=== PATIENT | male | born 1950 | race African-American/Black ===

== ENCOUNTER 2019-06-29 08:30 | Inpatient (IN) ==
[2019-06-29] MEDS ORDERED: NS 1,000 ML IV ONE (10:25)
[2019-06-29] MEDS ORDERED: ASPIRIN PO ONE (10:25)
[2019-06-29 11:19] LABS: HEMATOCRIT 41.6 % (42.0-52.0); HEMOGLOBIN 13.7 g/dL (14.0-18.0); MCV 86.7 FL (81-99); WBC 6.51 X1000 (4.8-10.8)
[2019-06-29 11:20] LABS: BASO# 0.03 X1000 (0.0-0.2); BASO% 0.5 % (0.0-0.8); EOS# 0.16 X1000 (0.0-0.7); EOS% 2.5 % (0.0-10.0); IMM GRAN# 0.01 X1000 (0.0-0.04); IMM GRAN% 0.2 % (0.0-0.5); LYMPH# 1.67 X1000 (1.2-3.4); LYMPH% 25.7 % (20.5-51.1); MCH 28.5 PG (27-31); MCHC 32.9 g/dL (33-37); MONO# 0.57 X1000 (0.11-0.59); MONO% 8.8 % (1.7-9.3); MPV 9.2 FL (7.4-10.4); NEUT# 4.07 X1000 (1.4-6.5); NEUT% 62.3 % (42.2-75.2); PLT 344 X1000 (130-400); RDW 14.2 % (11.5-14.5)
--- NOTE | 2019-06-29 11:27 | EKG Report ---
Test Performed on : 06/29/2019 10:59:14 AM Test Reason : stroke symptoms Blood Pressure : / mmHG Vent. Rate : 061 BPM Atrial Rate : 061 BPM P-R Int : 172 ms QRS Dur : 082 ms QT Int : 424 ms P-R-T Axes : 059 031 028 degrees QTc Int : 426 ms Normal sinus rhythm. Normal ECG When compared with ECG of 24-JAN-2017 16:25, No significant change was found Unconfirmed Result
[2019-06-29 11:37] LABS: BILIRUBIN URINE NEGATIVE (NEGATIVE); BLOOD URINE NEGATIVE (NEGATIVE); GLUCOSE URINE NEGATIVE (NEGATIVE); KETONE URINE NEGATIVE (NEGATIVE); LEUKOCYTES URINE TRACE (NEGATIVE); NITRITE URINE NEGATIVE (NEGATIVE); PROTEIN URINE TRACE mg/dL (NEGATIVE); SP GRAVITY URINE 1.015; UROBILINOGEN URINE NORMAL
[2019-06-29 11:38] LABS: CLARITY CLEAR (CLEAR); COLOR YELLOW; URINE BACTERIA 1+ /HFP; URINE CAST NONE SEEN /LPF; URINE CRYSTAL NONE SEEN /HPF; URINE EPITHELIAL CELLS <10 /HPF (<10); URINE RBC <10 /HPF (<10); URINE SOURCE CLEAN CATCH; URINE WBC <10 /HPF (<10); URINE YEAST PRESENT /HPF
[2019-06-29 11:43] LABS: UR AMPHETAMINES QUAL NONE DETECTED (NONE DETECT); UR BARBITUATES QUAL NONE DETECTED (NONE DETECT); UR BENZODIAZEPIN QUAL NONE DETECTED (NONE DETECT); UR COCAINE QUAL NONE DETECTED (NONE DETECT); UR METHADONE QUAL NONE DETECTED (NONE DETECT); UR METHAMPHETAMINE QUAL NONE DETECTED (NONE DETECT)
[2019-06-29 11:44] LABS: UR CANNABINOIDS QUAL PRESUMPTIVE POSITIVE (NONE DETECT); UR OPIATES QUAL PRESUMPTIVE POSITIVE (NONE DETECT); UR OXYCODONE QUAL NONE DETECTED (NONE DETECT); UR PCP QUAL NONE DETECTED (NONE DETECT); UR PROPOXYPHENE QUAL NONE DETECTED (NONE DETECT); UR TCA QUAL NONE DETECTED (NONE DETECT)
[2019-06-29 12:09] LABS: INR 0.98; PROTIME 13.5 Seconds (11.0-16.0)
[2019-06-29 12:10] LABS: PTT 21.9 Seconds (22.3-41.8)
--- NOTE | 2019-06-29 12:21 | Diag Imaging Result Doc PS360 ---
CT HEAD W/O CONTRAST - 06/29/2019 INDICATION: right sided weakness COMPARISON: None FINDINGS: There is moderately extensive, chronic periventricular white matter hypodensity mainly in the right frontal lobe. There is some faint cerebral white matter hypodensity compatible with chronic ischemia bilaterally, superiorly. No intracranial mass or hemorrhage. The skull is intact. The sinuses are clear. IMPRESSION: Chronic ischemic changes of the brain. No acute process. This exam was performed using automated exposure control, adjustment of mA or kV according to patient size, and/or use of iterative reconstruction technique Electronically signed by Bal Contreras 06/29/2019 12:19 PM
[2019-06-29 12:24] LABS: CALCIUM 8.3 mg/dL (8.8-10.2); CREATININE 1.3 mg/dL (0.7-1.2); TOTAL BILIRUBIN 0.3 mg/dL (0.20-1.00); TOTAL PROTEIN 6.8 g/dL (6.3-8.3)
--- NOTE | 2019-06-29 12:33 | Diag Imaging Result Doc PS360 ---
CHEST-PORTABLE - 06/29/2019 INDICATION: right sided weakness COMPARISON: 01/24/2017 FINDINGS: The lungs are normally expanded and clear. Heart size and mediastinal contours are normal. No pneumothorax or pleural effusion. IMPRESSION: Negative exam. Electronically signed by Bal Contreras 06/29/2019 12:31 PM
[2019-06-29 12:39] LABS: POTASSIUM 4.2 mmol/L (3.5-5.1)
[2019-06-29 12:40] LABS: ALBUMIN 3.5 g/dL (3.5-5.0)
[2019-06-29] MEDS ORDERED: ROCEPHIN 1 GM in NS 50 ML IV ONE (12:43)
[2019-06-29] MEDS ORDERED: DIFLUCAN PO ONE (12:43)
--- NOTE | 2019-06-29 12:48 | PROVIDER DOCUMENTATION ---
This chart was entered by Shell Perry Scribe, acting as scribe for Freddie Renae MD. HPI-Neurological Disorder - General Chief Complaint: Numbness Stated Complaint: NUMBNESS RT SIDE Time Seen by Provider: 06/29/19 08:50 Source: patient Allergies/Adverse Reactions: Patient Allergies Allergy/AdvReac Type Severity Reaction Status Date / Time No Known Allergies Allergy Verified 01/24/17 15:36 Home Medications: Home Medication List Medication Instructions Recorded Confirmed Last Taken Type Aspirin [Haakon Aspirin EC] 81 mg PO DAILY 05/07/15 05/16/18 05/06/15 History Atorvastatin Calcium 80 mg PO DAILY 05/07/15 05/16/18 05/06/15 History Calcium Carbonate/Vitamin D3 1 each PO DAILY 05/07/15 05/16/18 05/06/15 History [Calcium 500 + D Tablet] Magnesium Carbonate 1 cap PO DAILY 05/07/15 05/16/18 05/03/15 History Metoprolol Tartrate 50 mg PO BID 05/07/15 05/16/18 05/06/15 History Pantoprazole [Protonix] 40 mg PO DAILY@0700 05/07/15 05/16/18 05/06/15 History Acetaminophen with Codeine 1 ea PO Q6H PRN PRN #14 tab 05/16/18 Unknown Rx [Tylenol with Codeine #3 Tablet] Hydrocodone/APAP 5 mg/325 mg 1 tab PO Q6H PRN PRN #18 tab 05/16/18 Unknown Rx [Edward-5] Hydrocodone/Acetaminophen [Edward 1 tab PO BID PRN PRN 05/16/18 05/16/18 Unknown History 10-325 Tablet] Hydroxyzine [Atarax] 25 mg PO DAILY 05/16/18 05/16/18 Unknown History Naloxegol Oxalate [Movantik] 25 mg PO PRN PRN 05/16/18 05/16/18 Unknown History Sucralfate [Carafate] 1 gm PO 4XDAY 05/16/18 05/16/18 Unknown History Terazosin [Hytrin] 5 mg PO DAILY 05/16/18 05/16/18 Unknown History Meloxicam [Mobic] 15 mg PO DAILY #20 tab 09/15/18 Unknown Rx - History of Present Illness-Neuro Nature of Presenting Problem: Patient is a 68 year old male who presents to the ED with numbness and tingling to right side face, right arm and right leg. States symptoms started 2 days ago. Denies headache, vision changes, and trouble walking. Severity: reports: mild Onset/Duration: reports: 2 days ago Timing: reports: improving Context: reports: paresthesia, other (numbness) Character of Deficits: reports: altered sensation New weakness or altered sensation location:: reports: RUE, RLE, right facial Associated Symptoms: reports: denies symptoms Similar Symptoms Previously?: Yes Recently seen or treated by another doctor?: No Review of Systems - Adult - REVIEW OF SYSTEMS - ADULT Constitutional: reports: no symptoms reported. denies: chills, fever, fatique Eyes: reports: no symptoms reported. denies: decreased vision, blurred vision, double vision Ears, Nose, Mouth & Throat: reports: no symptoms reported Cardiovascular: reports: no symptoms reported Respiratory: reports: no symptoms reported Gastrointestinal: reports: no symptoms reported Genitourinary: reports: no symptoms reported Musculoskeletal: reports: no symptoms reported Integumentary: reports: no symptoms reported Neurological: reports: see HPI, numbness (RUE, RLE and right side face), paresthesia (RUE, RLE and right side face). denies: dizziness/vertigo, headache/migraines Psychiatric: reports: no symptoms reported Endocrine: reports: no symptoms reported Hematologic/Lymphatic: reports: no symptoms reported Allergic/Immunologic: reports: no symptoms reported All Other Systems: Reviewed and Negative Past History - Adult - PAST MEDICAL HISTORY-ADULT Review of Records: reports: Old Records Reviewed, Social history reviewed & non- contributory. Major Childhood Illnesses: reports: denies history Cardiovascular: reports: CAD, HTN, hyperlipidemia, [place] Respiratory: reports: denies history Gastrointestinal: reports: denies history Obstetrical/Gynecological: reports: denies history Genitourinary: reports: other (bph) Musculoskeletal: reports: chronic pain Neurological: reports: denies history Psychiatric: reports: denies history Endocrine/Immune: reports: denies history Other Conditions: reports: denies history - PRIOR SURGERIES/PROCEDURES Surgical/Procedure History: reports: appendectomy, hernia repair - IMMUNIZATION STATUS Childhood Immunizations: See Nurse Assessment Flu Vaccine: See Nurse Assessment - FAMILY HISTORY Family History: reviewed, not pertinent - SOCIAL HISTORY Smoking: cigarettes, less than 1 pack/day Provider spent 3-5 mins advising pt. on dangers of tobacco.: Discussed manners to quit use, and f/u contacts for add'l counseling. Substance Use: denies Living Situation: alone Physical Exam- Neurological - Physical Exam-Neuro Initial Vital Signs Reviewed: Yes General Appearance: alert, no apparent distress. negative: lethargic Eye Exam: bilateral eye: normal inspection, PERRL, EOMI HENMT: normocephalic/atraumatic, moist mucous membranes. negative: angioedema Head Injury: no evidence of injury. negative: active bleeding, ecchymosis, lacerations Respiratory: chest non-tender, lungs clear, normal breath sounds. negative: tire changer aircraft ckles, rales, rhonchi Cardiovascular: normal peripheral pulses, regular rate, rhythm. negative: tachycardia Abdominal Exam: normal bowel sounds, non tender, soft. negative: guarding, rebound Extremity: non-tender, pedal edema (bilateral). 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 negative: abnormal speech Motor/Sensory: no motor deficit, sensory deficit (right side face, RUE, and RLE) . negative: pronator drift (R), pronator drift (L) Neurologic: facial droop (right), sensory deficit (right side face, RUE and RLE) . negative: aphasia, motor weakness Integumentary: normal color, normal turgor, warm/dry. negative: diaphoresis, ecchymosis, rash Psych/Mental Status: normal mood/affect, oriented x 3. negative: anxious Progress - PLAN OF CARE/RESULTS Progress/Plan/Lab Results: Vital Signs - 8 hr 06/29/19 08:38 Temperature 98 F Pulse Rate 80 Respiratory Rate 18 Blood Pressure 132/65 O2 Sat by Pulse Oximetry 97 Laboratory Results - last 24 hr 06/29/19 06/29/19 06/29/19 10:24 11:00 11:00 WBC 6.51 RBC 4.80 Hgb 13.7 L Hct 41.6 L MCV 86.7 MCH 28.5 MCHC 32.9 L RDW Std Deviation 14.2 Plt Count 344 MPV 9.2 Immature Gran % (Auto) 0.2 Neut % (Auto) 62.3 Lymph % (Auto) 25.7 [place] % (Auto) 8.8 Eos % (Auto) 2.5 Baso % (Auto) 0.5 Immature Gran # (Auto) 0.01 Neut # (Auto) 4.07 Lymph # (Auto) 1.67 [place] # (Auto) 0.57 Eos # (Auto) 0.16 Baso # (Auto) 0.03 PT INR PTT (Actin FS) Sodium Potassium Chloride Carbon Dioxide Anion Gap BUN Creatinine Estimated GFR/1.73 m2 BUN/Creatinine Ratio Glucose Calculated Osmolality Calcium Total Bilirubin AST ALT Alkaline Phosphatase Total Protein Albumin Globulin Albumin/Globulin Ratio Urine Source CLEAN CATCH Urine Color YELLOW Urine Clarity CLEAR Urine pH 5.0 Ur Specific [place] 1.015 Urine Protein TRACE A Urine Ketones NEGATIVE Urine Blood NEGATIVE Urine Nitrite NEGATIVE Urine Bilirubin NEGATIVE Urine Urobilinogen NORMAL Urine Microscopic RBC <10 Urine WBC TRACE A Urine Microscopic WBC <10 Ur Epithelial Cells <10 Urine Crystals NONE SEEN Urine Bacteria 1+ Urine Casts NONE SEEN Urine Yeast PRESENT Urine Glucose NEGATIVE Urine Opiates Screen PRESUMPTIVE POSITIVE A Ur Oxycodone Screen NONE DETECTED Urine Methadone Screen NONE DETECTED U Propoxyphene Qual NONE DETECTED Ur Barbituates Screen NONE DETECTED Ur Tricyclics Screen NONE DETECTED Ur Phencyclidine Scrn NONE DETECTED Ur Amphetamines Screen NONE DETECTED U Methamphetamines Scrn NONE DETECTED U Benzodiazepines Scrn NONE DETECTED Urine Cocaine Screen NONE DETECTED U Cannabinoids Screen PRESUMPTIVE POSITIVE A 06/29/19 06/29/19 11:22 11:55 WBC RBC Hgb Hct MCV MCH MCHC RDW Std Deviation Plt Count MPV Immature Gran % (Auto) Neut % (Auto) Lymph % (Auto) [place] % (Auto) Eos % (Auto) Baso % (Auto) Immature Gran # (Auto) Neut # (Auto) Lymph # (Auto) [place] # (Auto) Eos # (Auto) Baso # (Auto) PT 13.5 INR 0.98 PTT (Actin FS) 21.9 L Sodium 138 Potassium 4.2 Chloride 103 Carbon Dioxide 27 Anion Gap 8 BUN 15 Creatinine 1.3 H Estimated GFR/1.73 m2 55 BUN/Creatinine Ratio 12 Glucose 80 Calculated Osmolality 275 Calcium 8.3 L Total Bilirubin 0.30 AST 15 ALT 27 Alkaline Phosphatase 77 Total Protein 6.8 Albumin 3.5 Globulin 3.0 Albumin/Globulin Ratio 1.0 Urine Source Urine Color Urine Clarity Urine pH Ur Specific [place] Urine Protein Urine Ketones Urine Blood Urine Nitrite Urine Bilirubin Urine Urobilinogen Urine Microscopic RBC Urine WBC Urine Microscopic WBC Ur Epithelial Cells Urine Crystals Urine Bacteria Urine Casts Urine Yeast Urine Glucose Urine Opiates Screen Ur Oxycodone Screen Urine Methadone Screen U Propoxyphene Qual Ur Barbituates Screen Ur Tricyclics Screen Ur Phencyclidine Scrn Ur Amphetamines Screen U Methamphetamines Scrn U Benzodiazepines Scrn Urine Cocaine Screen U Cannabinoids Screen Orders Category Date Time Status Cardiac Monitoring DIRECTED Care 06/29/19 10:24 Active Finger Stick Blood Sugar (ED) DIRECTED Care 06/29/19 10:24 Active Saline Loc NOW Care 06/29/19 10:24 Active CHEST-PORTABLE [RAD] Stat Exams 06/29/19 10:[address] HEAD W/O CONTRAST [CT] Stat Exams 06/29/19 12:04 Completed CBC WITH ELECTRONIC DIFF [HEME] Stat Lab 06/29/19 10:24 Completed COMPREHENSIVE METABOLIC PANEL [CHEM] Stat Lab 06/29/19 11:55 Completed PROTIME WITH INR [COAG] Stat Lab 06/29/19 11:22 Completed PTT [COAG] Stat Lab 06/29/19 11:22 Completed TROPONIN T Stat Lab 06/29/19 11:[address] W/POSS RFLX CULT [URINALYSIS] Stat Lab 06/29/19 11:00 Completed URINE CULTURE [RM] Routine Lab 06/29/19 11:38 [address] DRUG SCREEN [address] Stat Lab 06/29/19 11:00 Completed 0.9% Sodium Chloride Inj [Ns] 1,000 ml Med 06/29/19 10:25 Discontinued IV 999 mls/hr Aspirin Med 06/29/19 10:25 Discontinued 325 mg PO NOW ONE EKG [EKG] Stat Ther 06/29/19 10:24 Draft Result Diagrams: 06/29/19 10:24 06/29/19 11:55 - EKG 1 Time of EKG reading by physician:: 10:59 EKG Read and Signed by:: Freddie Renae EKG Interpretation (*Must complete 3 of following elements*): Normal Rate: 61 Rhythm: normal sinus rhythm [place]: normal QRS: normal [place] Interval: normal ST Wave: normal Comments: normal ECG - CONSULTS/PCP/HOSPITALIST Notification #1 *Consult/PCP/Hospitalist*: Oswaldo paged at [phone] Time Discussed: 12:48 Consult Disposition: Admit Departure - Departure Date of Disposition Decision: 06/29/19 Time of Disposition Decision: 12:44 DIAGNOSIS: Genital candidiasis in male CVA (cerebral vascular accident) Qualifiers: CVA mechanism: thrombosis Precerebral and cerebral artery: anterior cerebral artery Laterality of affected vessel: left Qualified Code(s): 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 UTI (urinary tract infection) Qualifiers: Urinary tract infection type: acute cystitis Hematuria presence: without hematuria Qualified Code(s): N30.00 - Acute cystitis without hematuria Disposition: ADMITTED INPATIENT Certified Medical Emergency: Emergent Condition: Stable Referrals and Follow-Ups: Ryan Quiroz [Primary Care Provider] - - Critical Care Note This patient required my direct & personal management of CC.: No Attestation - Physician/ NORMA Attestation Patient care was provided by Advanced Practice Provider:: No The physician spent face to face time with patient:: Yes Advanced Practice Provider documentation review:: Supervising physician onsite and consulted in the evaluation and care of this patient. The physician did have a face to face encounter with the patient. - NIH Stroke Scale Level of Consciousness: 0-Alert LOC Questions (ask month and age): 0-Answers Both Correctly LOC Commands (ask to open & close eyes;make a fist, let go): 0-Obeys Both Correctly Best Gaze (horizontal eye movement): 0-Normal Visual (use finger movement, counting or visual threat): 0-No Visual Loss Facial Palsy (show teeth or raise eyebrows & close eyes tght: 1-Minor Paralysis Motor Function-left arm: 0-Normal Motor Function-right arm: 0-Normal Motor Function-left le-Normal Motor Function-right le-Normal Limb Ataxia([id number], or heel to dee): 0-No Ataxia Sensory(pin prick to face,arms,trunk,legs-compare side/side): 1-Mild to Moderate Decrease in Sensation Best Language(name item/read sentence.Ex-Down to Earth): 0-No Aphasia Dysarthria(Pt read words or say words Ex.Mama,Tip-Top,Thanks: 0-Normal Articulation Extinction and Inattention: 0-Normal NIH Total Score: 2 Modified [place] Score Criteria: 1-no significant disability despite symptoms Stroke tPA Guidelines - Inclusion Criteria for IV tPA 18 years old or older: Yes Ischemic stroke with measurable deficit: Yes Onset <3 hours ago *OR* 3-4.5 hours ago: No - Exclusion Criteria for IV tPA Evidence of intracranial hemorrhage on CT: No Presentation suggest SAH: No CT reveals defined area of hypodensity: No Evidence of AVM, neoplasm, aneurysm: No Seizure at stroke onset: No Active internal bleeding or acute trauma: No Platelet Count Less Than 100,000: No Heparin Within Last 48 HRS (PTT >Lab normal limits): No INR > 1.7 (warfarin use): No Use IIB/IIIA inhibitors within 24 hours: No Serious Head Trauma Within Last 3 Months: No Arterial Puncture Within Last 7 Days: No Lumbar Puncture Within Last 7 Days: No Repeated systolic Blood Pressure >185 or Diastolic >110: No - Additional Exclusion Criteria for IV tPA Currently on Coumadin: No Patient older than 80: No Prior stroke and diabetes: Yes Baseline NIHSS score > 25: No - Relative Contraindications to IV tPA CT reveals extensive area of infarct (>1/3 MCA territory): No Minor or rapidly improving stroke symptoms: No Major Surgery or Serious Trauma In Previous 14 Days: No AMI within 3 months: No Gastrointestinal or Urinary Tract hemorrhage in Past 21 Days: No Post - AMI pericarditis: No Blood Glucose Less Than 50 mg/dl or Greater Than 400 mg/dl: No - Consultation tPA risks/benefits explained to:: patient Candidate for:: NOT A CANDIDATE (event started several days ago.) This chart was documented by the indicated scribe, (Shell Perry Scribe) and accurately reflects the services I performed and decisions made by Oc phillips Kent A., MD, as attested by the provider's signature.
[2019-06-29] MEDS ORDERED: ZOFRAN PO PRN (12:49)
[2019-06-29] MEDS ORDERED: TYLENOL PO PRN (12:49)
[2019-06-29] MEDS ORDERED: ASPIRIN ONE (13:09)
[2019-06-29] MEDS ORDERED: PNEUMOVAX 23 IM ONE (16:31)
[2019-06-29] MEDS: NS 1,000 ML IV SCH (16:41)
--- NOTE | 2019-06-29 16:52 | Extremity Venous Study ---
Carotid Ultrasound - 06/29/2019 INDICATION: TIA vs CVA TECHNIQUE: COMPARISON: None FINDINGS: The carotid artery systems are normal bilaterally. No significant plaque buildup. No elevated velocity to suggest significant stenosis. Maximum velocity on the right side is 62 cm/s. Maximum on the left side is 72 cm/s. The vertebral arteries are patent bilaterally. IMPRESSION: No significant carotid arterial stenosis. Estimated stenosis is 0%. Electronically signed by Bal Contreras 06/29/2019 4:49 PM
--- NOTE | 2019-06-29 17:08 | HISTORY AND PHYSICAL ---
PRIMARY CARE PHYSICIAN: Dr. Ryan Quiroz. CHIEF COMPLAINT: Numbness and tingling to the right side of his face, arm and leg that began on Saturday and progressively worsened. HISTORY OF PRESENTING ILLNESS: This is a 68-year-old male who presents to [facility] ER with complaints of numbness and tingling on the right side of his face, arm and leg states the symptoms began on Saturday and progressively worsened. He denied any headache, vision changes, dizziness, difficulty walking, denied any difficulty swallowing. His workup in the emergency room showed a head CT with chronic ischemic changes of the brain but no acute process. Laboratory data did show a little bump in his creatinine at 1.3. Urinalysis was negative except for 1+ bacteria and he did have some yeast present. His urine drug screen was presumptive positive for opiates and cannabinoids so he is being admitted for further evaluation and treatment. PAST MEDICAL HISTORY: Coronary artery disease status post PA, hypertension, hyperlipidemia, BPH and chronic pain. PAST SURGICAL HISTORY: Of an appendectomy and a hernia repair. FAMILY HISTORY: Reviewed and noncontributory. SOCIAL HISTORY: Currently lives alone. Smokes 1 to 2 cigarettes a day and has done so for approximately 5 years, denies any alcohol. Uses marijuana about every other day. ALLERGIES: He has no known drug allergies. HOME MEDICATIONS: A current list will need to be obtained, reconciled, reviewed and restarted as appropriate. Will place an order for nursing to update and confirm home medications. LABORATORY DATA: Showed a white blood cell count of 6.51, hemoglobin 13.7, hematocrit 41.6, platelets 344,000. PT and INR of 13.5 and 0.98. Sodium 138, potassium 4.2, chloride 103, CO2 27, BUN of 15, creatinine 1.3, glucose of 80, troponin less than 0.010. Urinalysis was negative except for 1+ bacteria and there was yeast present. Urine drug screen was presumptive positive for opiates and cannabinoids. CT of the head showed chronic ischemic changes of the brain but no acute process. Chest x-ray showed a negative exam. EKG showed normal sinus rhythm at 61. REVIEW OF SYSTEMS: He denied any fever, chills, blurred vision, dizziness, chest pain, coughing, shortness of breath, denies any abdominal pain, constipation, diarrhea, burning or hurting with urination. Did complain of some numbness to his right side of his face, arms and legs. PHYSICAL EXAMINATION: On arrival he had a temperature of 98 degrees, pulse 80, respirations 18, blood pressure 132/65, saturating 97% on room air. GENERAL: This is a 68-year-old male who is standing by the side of the bed answers questions appropriately. HEENT: Normocephalic, atraumatic. Normal ENT inspection. Oropharynx and nares are clear. Pupils are equal, round, reactive to light and accommodation. Extraocular movements are intact. NECK: Normal inspection, normal range of motion. LUNGS: Clear to auscultation bilaterally with equal lung expansion and chest wall movement. HEART: With regular rate and rhythm. No murmurs, rubs, or gallops. ABDOMEN: Soft, nontender, nondistended. Bowel sounds are present x4 quadrants. MUSCULOSKELETAL: He had 5/5 strength x4 extremities. NEUROLOGICAL: The cranial nerves 2-12 appear grossly intact. ASSESSMENT: 1. Transient ischemic attack versus cerebrovascular accident. 2. A mild acute kidney injury. 3. Candidiasis in urinalysis. 4. Tobacco abuse. 5. Marijuana abuse. 6. Coronary artery disease history of aware . PLAN: He will be admitted to the medical unit, placed on telemetry, healthy heart diet. Will check an MRI of the brain today with and without contrast. We will do an echocardiogram, carotid Dopplers, we will check a lipid panel. Place him on normal saline at 75 mL an hour, recheck CBC, BMP in the a.m. Place him on fluconazole 100 mg p.o. daily for 3 days, he did receive a 1st dose in the emergency room, along with an aspirin 325 mg daily. We need to verify his home medications and restart as appropriate and further orders after being seen by attending. Dictated by MARGARET Briscoe for Magdiel Chacon MD cc: MD Magdiel Lucas MD
[2019-06-29] MEDS: LIPITOR PO SCH (21:14)
[2019-06-29] MEDS: ATARAX PO SCH (21:14)
[2019-06-29] MEDS: BENADRYL PO SCH (21:14)
[2019-06-29] MEDS: NORCO-10 PO PRN (21:15)
[2019-06-30] MEDS: NS 1,000 ML IV SCH (04:53)
[2019-06-30] MEDS ORDERED: ZOFRAN ODT PO PRN (06:32)
[2019-06-30 06:36] LABS: BASO# 0.03 X1000 (0.0-0.2); BASO% 0.4 % (0.0-0.8); EOS# 0.12 X1000 (0.0-0.7); EOS% 1.5 % (0.0-10.0); HEMATOCRIT 40.1 % (42.0-52.0); HEMOGLOBIN 13.2 g/dL (14.0-18.0); IMM GRAN# 0.01 X1000 (0.0-0.04); IMM GRAN% 0.1 % (0.0-0.5); LYMPH# 1.63 X1000 (1.2-3.4); MCH 28.2 PG (27-31); MCHC 32.9 g/dL (33-37); MCV 85.7 FL (81-99); MONO# 0.63 X1000 (0.11-0.59); MONO% 8.1 % (1.7-9.3); MPV 9.1 FL (7.4-10.4); NEUT# 5.34 X1000 (1.4-6.5); NEUT% 68.9 % (42.2-75.2); PLT 360 X1000 (130-400); RBC 4.68 XMIL (4.7-6.1); RDW 13.9 % (11.5-14.5); WBC 7.76 X1000 (4.8-10.8)
--- NOTE | 2019-06-30 06:50 | HISTORY AND PHYSICAL ---
ADDENDUM: Patient seen and examined by myself. Full note dictated and discussed with nurse practitioner. Patient presented to the hospital with numbness and tingling on the right side of his face. cc: Magdiel Chacon MD
[2019-06-30 06:51] LABS: AGAP 11; BUN 14 mg/dL (8-22); CALCIUM 8.1 mg/dL (8.8-10.2); CHLORIDE 104 mmol/L (98-107); COSMO 278; CREATININE 1.1 mg/dL (0.7-1.2); ESTIMATED GFR > 60; GLUCOSE 91 mg/dL (70-104); POTASSIUM 4.1 mmol/L (3.5-5.1); SODIUM 139 mmol/L (136-145); TCO2 24 mmol/L (25-35)
[2019-06-30] MEDS: HYTRIN PO SCH (08:40)
[2019-06-30] MEDS: ASPIRIN EC PO SCH (08:40)
[2019-06-30] MEDS: DIFLUCAN PO SCH (08:40)
[2019-06-30] MEDS: BENADRYL PO SCH ×2 (08:40→20:20)
[2019-06-30] MEDS: CALTRATE 600 + D PO SCH (08:41)
[2019-06-30] MEDS: NORCO-10 PO PRN ×2 (09:20→20:19)
--- NOTE | 2019-06-30 12:15 | Diag Imaging Result Doc PS360 ---
EXAM: MRI BRAIN WO CONTRAST 06/30/2019 HISTORY: TIA vs CVA TECHNIQUE: T1 sagittal and axial, axial T2, FLAIR, DWI and coronal gradient echo. COMMENT: There are no previous MRI studies. There is a mucous retention cyst in the right maxillary sinus. There is extensive patchy hyperintensity on T2 in the periventricular white matter particularly around the atria of the lateral ventricles and the frontal horns particularly on the right. There are scattered punctate areas of increased T2-weighted signal intensity particularly in the right centrum semiovale. There is a small lacunar lesion present in the left thalamus. There is some restricted diffusion in the thalamic lacune. There is no evidence of bleed or abnormal extra-axial fluid collection. There is some encephalomalacia adjacent to the anterior horn of the right lateral ventricle. There is some hemosiderin deposition in the basal ganglia. IMPRESSION: Extensive chronic ischemic changes with new small left thalamic infarct. Electronically signed by Delfino Alcantara 06/30/2019 12:13 PM
--- NOTE | 2019-06-30 12:49 | ECHO REPORT ---
ORDER DATE: 06/29/2019 INDICATION: TIA versus CVA. FINDINGS: 1. The right atrium appears normal in size at 2.6 cm. 2. Mild tricuspid regurgitation. RV systolic pressure of 43. 3. Normal RV size and systolic function. 4. No significant pulmonic insufficiency. 5. Normal left atrial size with a dimension of 3.6 cm. Volume index of 20. 6. No mitral prolapse. Mild mitral regurgitation. No evidence of mitral stenosis. 7. Normal LV size, end-diastolic dimension of 4.3. Normal wall thicknesses with a posterior and interventricular septal wall thickness of 0.8 cm each. Normal LV systolic function. Estimated EF of 55% to 60% with normal wall motion. 8. The aortic valve opens well. It is trileaflet. No evidence of stenosis or insufficiency. 9. The aorta appears normal on visualized segments. 10. No pericardial effusion seen. cc: MD Kaur Garrison CRNP
--- NOTE | 2019-06-30 17:34 | PROGRESS NOTE ---
DATE: 06/30/2019 SUBJECTIVE: Patient has no major complaints. OBJECTIVE: Vital signs: Blood pressure 152/67, heart rate 74, respiratory rate 16, temperature 98.5 degrees, 97% on room air. Cardiovascular: Regular rate and rhythm. Pulmonary: Bilateral breath sounds. Clear to auscultation. GI: Soft, nontender, nondistended. Bowel sounds are positive. LABORATORY DATA: Unremarkable. 1. MRI did show a small left thalamic infarct. 2. Echo was normal. EF was good, 55 to 60%. No major valvular issues. 3. Carotid showed no stenosis. PROBLEM: Acute ischemic infarct, very small in diameter. He is on aspirin. He has already been on aspirin. I will add Plavix. We will continue Lipitor and follow closely. DISPOSITION: Anticipate discharge soon. He is refusing further IV fluids because he does not want to urinate excessively. His blood pressure is stable, so I think we can kind of monitor that. Disposition is pending his clinical status but I anticipate discharge tomorrow. cc: Ariel Gallegos MD
[2019-06-30] MEDS: ATARAX PO SCH (20:20)
[2019-06-30] MEDS: LIPITOR PO SCH (20:20)
[2019-07-01 07:43] VITALS: BP 152/64
[2019-07-01] MEDS ORDERED: PLAVIX PO SCH (09:00)
[2019-07-01] MEDS: CALTRATE 600 + D PO SCH (09:26)
[2019-07-01] MEDS: BENADRYL PO SCH (09:26)
[2019-07-01] MEDS: ASPIRIN EC PO SCH (09:26)
[2019-07-01] MEDS: DIFLUCAN PO SCH (09:26)
[2019-07-01] MEDS: NORCO-10 PO PRN (09:27)
[2019-07-01] MEDS: HYTRIN PO SCH (09:27)
--- NOTE | 2019-07-02 05:52 | DISCHARGE SUMMARY ---
ADMISSION DATE: 06/29/2019 DISCHARGE DATE: 07/01/2019 He is doing well today. No complaints. Desperate to go home at any cost. Blood pressure 152/64, heart rate 80, respiratory 18, temperature 98.5 degrees, and 100% saturation on room air. He is up and walking. He looks well. Plan is to discharge him today. I encouraged him to try to get a MRA. He refused a CT scan because he does not want IV dye in his body. We discussed about the MRA, and need to complete his workup. In any case, he looks well. We are going to discharge him home. We will add Plavix to his aspirin and Lipitor. Hopefully, he will be compliant. I am going to bump up his Lipitor to 80. DISCHARGE CONDITION: Stable. TIME SPENT: 32 minute discharge. Seen in conjunction with MARGARET Briscoe. cc: Ariel Gallegos MD
--- NOTE | 2019-07-02 09:13 | DISCHARGE SUMMARY ---
ADMISSION DATE: 06/29/2019 DISCHARGE DATE: 07/01/2019 PRIMARY CARE PHYSICIAN: Dr. Ryan Quiroz. ADMISSION DIAGNOSES: 1. Transient ischemic attack versus cerebrovascular accident. 2. Mild acute kidney injury. 3. Candidiasis in his urine. 4. Tobacco abuse. 5. Marijuana abuse. 6. Coronary artery disease, history of, aware. DISCHARGE DIAGNOSES: 1. Acute cerebrovascular accident with a left thalamic infarct. 2. Mild acute kidney injury resolved. 3. Candidiasis in urinalysis treated. 4. Tobacco abuse. 5. Marijuana abuse. 6. Coronary artery disease aware. SUMMARY OF FINDINGS: This is a 68-year-old male who presented with numbness and tingling on the right side of his face, arm and leg that began on Saturday and progressively worsened. His workup in the emergency room on his head CT showed chronic ischemic changes of the brain, but no acute process. He had a mild bump in his creatinine at 1.3. His urinalysis had 1+ bacteria and it did have yeast present. Urine drug screen was presumptive positive for opiates and cannabinoids so he was admitted. He was placed on fluconazole 100 mg p.o. daily for 3 days. We did a carotid Doppler study that showed no significant carotid arterial stenosis estimated at 0%. We did an echocardiogram that showed ejection fraction of 55 to 60 percent with a normal LV systolic function. We did a brain MRI on 06/30/2019 that showed extensive chronic ischemic changes with new small left thalamic infarct. We did attempt to get a CTA of the brain and CT angiogram. The patient refused the contrast. We attempted to get an MRA, and he did not want to wait for that test, but it was felt that he could safely be discharged home today. DISCHARGE MEDICATIONS: 1. Aspirin 81 mg p.o. daily. 2. Calcium with vitamin D 1 p.o. daily. 3. Plavix 75 mg p.o. daily. 4. Benadryl 25 mg p.o. b.i.d. 5. [place] 10 1 p.o. t.i.d. p.r.n. 6. Hydroxyzine 25 mg p.o. at bedtime. 7. Hytrin 5 mg p.o. daily. FOLLOWUP: He will need to follow up with his primary care physician in 1 to 2 weeks, and call their office for an appointment. TIME SPENT WITH PATIENT: This is a 35 minute discharge. Dictated by MARGARET Briscoe for Ariel Gallegos MD cc: MD Kaur Lucas CRNP Alexis R. Penot, MD
== END 2019-07-01 12:30 | disposition home or self-care (01) | DRG 65 ==
LOC: P.ED 08:30 → SUATTDRO 13:08 → P.MEDSURG 13:08
PROVIDERS: ATTEND Internal Medicine